=== PATIENT | female | born 1965 | race Caucasian/White ===

== ENCOUNTER 2020-11-17 12:41 | Emergency (ER) | payer BC ==
[~2020-11-17] VITALS: Ht 175.3 cm; Wt 63.5 kg
[2020-11-17] MEDS ORDERED: IV NORMAL SALINE 1000 ML BAG IV ONE (13:15)
[2020-11-17 13:17] LABS: *BILIRUBIN,URIN NEGATIVE (NEGATIVE); *BLOOD, URINE NEGATIVE (NEGATIVE); *CLARITY,URINE CLEAR (CLEAR); *COLOR,URINE YELLOW (YELLOW); *KETONES,URINE NEGATIVE (NEGATIVE); *UROBILINOGEN,URINE 0.2 E.U./dl (NORMAL); LEUKOCYTE ESTERASE ,URINE NEGATIVE (NEGATIVE); NITRITE, URINE NEGATIVE (NEGATIVE); UGLUCOSE NEGATIVE (NEGATIVE)
[2020-11-17 13:20] LABS: BASOPHILS # (AUTO) 0.1 K/uL (0.0-8.0); EOSINOPHILS % (AUTO) 0.8 % (0.0-7.0); HEMATOCRIT 40.1 % (31.2-41.9); HEMOGLOBIN 13.7 g/dL (10.9-14.3); LYMPHOCYTES # (AUTO) 2.1 K/uL (20.0-40.0); LYMPHOCYTES % (AUTO) 37.4 % (20.5-51.5); MEAN CORPUSCULAR HEMOGLOBIN 32.7 uug (24.7-32.8); MEAN CORPUSCULAR HGB CONC 34 g/dL (32.3-35.6); MONOCYTES # (AUTO) 0.4 K/uL (2.0-10.0); MONOCYTES % (AUTO) 7.2 % (0.0-11.0); NEUTROPHILS % (AUTO) 53.6 % (38.5-71.5); PLATELET COUNT (AUTO) 195 K/uL (179-408); RED BLOOD CELL COUNT(AUTO) 4.18 MIL/uL (3.63-4.92); WHITE BLOOD COUNT (AUTO) 5.6 K/uL (3.8-11.8)
--- NOTE | 2020-11-17 13:21 | NUR ---
Pt c/o "tearing" pain in RLQ to lower midline, later also described as burning, varies in intensity from 2/10 to 10/10 on occasion. Rebound tenderness noted. Also c/o of being "queasy," but denies nausea. Although pt states she drank too much coffee several days ago (and had associated CP with palpitations that day), Pt currently denies CP, SOB, dizziness, n/v, no other complaints, no distress noted. 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
[2020-11-17 13:31] LABS: BILIRUBIN,DIRECT 0.1 mg/dL (0.0-0.2); BILIRUBIN,TOTAL 0.5 mg/dL (0.2-1.0); CREATININE 0.7 mg/dL (0.6-1.3); POTASSIUM 3.9 mmol/L (3.5-5.1)
--- NOTE | 2020-11-17 14:05 | NUR ---
U/S bedside, PET[facility] [employer].
--- NOTE | 2020-11-17 15:12 | NUR ---
Removed IV intact, site okay, bandaged. Gave pt d/c instructions, pt verbalized understanding.
== END 2020-11-17 15:15 | disposition home or self-care (01) ==
LOC: ER 12:41
DX: R10.2 Pelvic and perineal pain (principal); Z98.82 Breast implant status; Z87.19 Personal history of other diseases of the digestive system; N88.8 Other specified noninflammatory disorders of cervix uteri; Z82.49 Family history of ischemic heart disease and other diseases of the circulatory system
CPT/HCPCS: 36415; 76770; 76856; 85025; A4663; J7030

== ENCOUNTER 2022-09-22 18:12 | Emergency (ER) | payer BC ==
[~2022-09-22] VITALS: Ht 175.3 cm; Wt 61.2 kg
[2022-09-22] MEDS ORDERED: ASPIRIN 81 MG TAB.CHEW PO ONE (18:45)
[2022-09-22 18:49] LABS: HEMATOCRIT 39.8 % (31.2-41.9); MEAN CORPUSCULAR HEMOGLOBIN 32.2 uug (24.7-32.8); MEAN CORPUSCULAR VOLUME 96.7 fL (75.5-95.3); PLATELET COUNT (AUTO) 192 K/uL (179-408)
--- NOTE | 2022-09-22 18:51 | NUR ---
Pt stated that she took aspirin at 3pm today. notified.
--- NOTE | 2022-09-22 19:00 | NUR ---
Seen by YURIY for MSE.
[2022-09-22 19:08] LABS: CARBON DIOXIDE 29 mmol/L (21-32); CHLORIDE 102 mmol/L (98-107); CREATININE 0.7 mg/dL (0.6-1.3); GLUCOSE 99 mg/dL (74-106); POTASSIUM 3.5 mmol/L (3.5-5.1); UREA NITROGEN, BLOOD 16 mg/dL (7-18)
--- NOTE | 2022-09-22 19:14 | NUR ---
Endorsed to Perla GREEN.
[2022-09-22] MEDS ORDERED: LORAZEPAM 0.5 MG TABLET PO ONE (19:15)
[2022-09-22 19:25] LABS: ALANINE AMINOTRANSFERASE 25 U/L (14-59); ALKALINE PHOSPHATASE 56 U/L (50-136); ASPARTATE AMINOTRANSFERASE 16 U/L (15-37); BILIRUBIN,DIRECT 0.1 mg/dL (0.0-0.2); BILIRUBIN,TOTAL 0.4 mg/dL (0.2-1.0); TOTAL PROTEIN, SERUM 7.2 g/dL (6.4-8.2)
[2022-09-22] MEDS ORDERED: LORAZEPAM 0.5 MG TABLET ONE (19:33)
[2022-09-22] MEDS ORDERED: ASPIRIN 81 MG TAB.CHEW ONE (19:37)
[2022-09-22] MEDS ORDERED: IV NORMAL SALINE 1000 ML BAG IV ONE (19:45)
--- NOTE | 2022-09-22 19:45 | NUR ---
Gace all due meds as ordered. PT. AOX4, able to make needs known, VSS at this time
[2022-09-22] MEDS ORDERED: LORA-259 PO (20:23)
[2022-09-22 20:27] VITALS: BP 124/87
--- NOTE | 2022-09-22 20:27 | NUR ---
Patient discharged to home in stable condition. Written and verbal after care instructions given. Patient verbalizes understanding of instructions. Stressed follow up or return to ER for worsening s/s.
== END 2022-09-22 20:28 | disposition home or self-care (01) ==
LOC: ER 18:12
DX: R07.9 Chest pain, unspecified (principal); R00.2 Palpitations
CPT/HCPCS: 99285; 71045; 80076; 80048; 83880; 85025; 85379; 84484; 36415; 93005; J7040; A4663

== ENCOUNTER 2024-01-16 18:32 | Emergency (ER) | payer BC ==
[~2024-01-16] VITALS: Ht 177.8 cm; Wt 63.5 kg
[~2024-01-16 18:32] MED LIST: LORA-259 PO
[2024-01-16] MEDS ORDERED: ACETAMINOPHEN ES 500 MG TABLET ONE (19:14)
[2024-01-16] MEDS: ACETAMINOPHEN ES 500 MG TABLET PO ONE (19:16)
[2024-01-16] MEDS ORDERED: FLUC100T8 PO (21:32)
[2024-01-16] MEDS ORDERED: OXYC5TAB3 PO (21:32)
[2024-01-16] MEDS ORDERED: CEPH500C2 PO (21:32)
[2024-01-16] MEDS ORDERED: IBUPROFEN 600 MG TABLET ONE (21:46)
[2024-01-16] MEDS ORDERED: CEphaleXIN 500 MG CAPSULE ONE (21:46)
[2024-01-16] MEDS: CEphaleXIN 500 MG CAPSULE PO ONE (21:49)
[2024-01-16] MEDS: IBUPROFEN 600 MG TABLET PO ONE (21:49)
[2024-01-16 21:51] VITALS: BP 138/88; O2SAT 99
== END 2024-01-16 21:52 | disposition home or self-care (01) ==
LOC: ER 18:38
DX: S22.31XA Fracture of one rib, right side, initial encounter for closed fracture (principal); S02.85XA Fracture of orbit, unspecified, initial encounter for closed fracture; S60.511A Abrasion of right hand, initial encounter; M54.2 Cervicalgia; Z98.890 Other specified postprocedural states; Z79.899 Other long term (current) drug therapy; W18.39XA Other fall on same level, initial encounter; Y93.89 Activity, other specified; Y92.89 Other specified places as the place of occurrence of the external cause; Y99.8 Other external cause status
CPT/HCPCS: 70450; 70486; 71101; A4606; A4663; A9150

== ENCOUNTER 2024-01-19 08:02 | Emergency (ER) | payer BC ==
[~2024-01-19] VITALS: Ht 177.8 cm; Wt 63.5 kg
[~2024-01-19 08:02] MED LIST changes: +CEPH500C2 PO; +FLUC100T8 PO; +OXYC5TAB3 PO
[2024-01-19 09:21] VITALS: BP 133/71; TEMP 98.2; O2SAT 98
== END 2024-01-19 09:22 | disposition home or self-care (01) ==
LOC: ER 08:02
DX: S02.31XA Fracture of orbital floor, right side, initial encounter for closed fracture (principal); S22.31XA Fracture of one rib, right side, initial encounter for closed fracture; S16.1XXA Strain of muscle, fascia and tendon at neck level, initial encounter; F07.81 Postconcussional syndrome; Z98.890 Other specified postprocedural states; Z79.899 Other long term (current) drug therapy; W18.39XA Other fall on same level, initial encounter; Y93.89 Activity, other specified; Y92.89 Other specified places as the place of occurrence of the external cause; Y99.8 Other external cause status
CPT/HCPCS: A4606; A4663

== ENCOUNTER 2024-01-20 09:58 | Emergency (ER) | payer BC ==
[~2024-01-20] VITALS: Ht 177.8 cm; Wt 63.5 kg
[2024-01-20 10:42] VITALS: BP 139/90; TEMP 98.6; O2SAT 100
== END 2024-01-20 10:44 | disposition home or self-care (01) ==
LOC: ER 09:58
DX: R04.0 Epistaxis (principal); Z79.899 Other long term (current) drug therapy
CPT/HCPCS: A4606; A4663

== ENCOUNTER 2024-02-06 13:34 | Emergency (ER) | payer BC ==
[~2024-02-06] VITALS: Ht 175.3 cm; Wt 63.5 kg
[2024-02-06] MEDS ORDERED: ALPRAZOLAM 0.5 MG TABLET ONE (15:48)
[2024-02-06] MEDS: ALPRAZOLAM 0.25 MG TABLET PO ONE (15:50)
[2024-02-06 15:54] VITALS: BP 121/76; TEMP 97; O2SAT 98
== END 2024-02-06 15:55 | disposition home or self-care (01) ==
LOC: ER 13:36
DX: G96.00 Cerebrospinal fluid leak, unspecified (principal); R51.9 Headache, unspecified; Z98.890 Other specified postprocedural states; Z79.899 Other long term (current) drug therapy; Z79.891 Long term (current) use of opiate analgesic
CPT/HCPCS: 70450; 70486; 72125; A4606; A4663

== ENCOUNTER 2024-09-25 01:04 | Emergency (ER) | payer BC, OTHER ==
[~2024-09-25] VITALS: Ht 175.3 cm; Wt 63.5 kg
[2024-09-25] MEDS ORDERED: diphenhydrAMINE 25 MG CAP PO ONE (02:14)
[2024-09-25] MEDS ORDERED: ACETAMINOPHEN 500 MG TABLET ONE (02:14)
[2024-09-25] MEDS: ACETAMINOPHEN 500 MG TABLET PO ONE (02:20)
[2024-09-25] MEDS: diphenhydrAMINE 50 MG CAPSULE PO ONE (02:20)
[2024-09-25 03:06] LABS: BASOPHILS # (AUTO) 0.1 K/UL (0.0-0.2); BASOPHILS % (AUTO) 2.5 % (0.0-2.0); EOSINOPHILS % (AUTO) 0.9 % (0.0-7.0); HEMATOCRIT 39.3 % (31.2-41.9); HEMOGLOBIN 13.2 g/dL (10.9-14.3); LYMPHOCYTES # (AUTO) 1.9 K/uL (0.8-4.8); LYMPHOCYTES % (AUTO) 38.1 % (20.5-51.5); MEAN CORPUSCULAR HEMOGLOBIN 32.8 uug (24.7-32.8); MEAN CORPUSCULAR HGB CONC 34 g/dL (32.3-35.6); MEAN CORPUSCULAR VOLUME 97.6 fL (75.5-95.3); MONOCYTES # (AUTO) 0.5 K/uL (0.1-1.30); MONOCYTES % (AUTO) 10.1 % (0.0-11.0); NEUTROPHILS # (AUTO) 2.4 K/uL (1.8-8.9); NEUTROPHILS % (AUTO) 48.4 % (38.5-71.5); PLATELET COUNT (AUTO) 188 K/uL (179-408); RED BLOOD CELL COUNT(AUTO) 4.02 MIL/uL (3.63-4.92)
[2024-09-25 03:10] LABS: DIFFERENTIAL COMMENT 1
[2024-09-25 03:11] LABS: *BILIRUBIN,URIN NEGATIVE (NEGATIVE); *BLOOD, URINE 1+ (NEGATIVE); *CLARITY,URINE CLEAR (CLEAR); *COLOR,URINE YELLOW (YELLOW); *KETONES,URINE NEGATIVE (NEGATIVE); *PROTEIN,URINE NEGATIVE (NEGATIVE); *UROBILINOGEN,URINE 0.2 E.U./dl (NORMAL); LEUKOCYTE ESTERASE ,URINE TRACE (NEGATIVE); NITRITE, URINE NEGATIVE (NEGATIVE); PH,URINE 5.5 (5.0-8.0); UGLUCOSE NEGATIVE (NEGATIVE)
[2024-09-25 03:12] LABS: BACTERIA,URINE FEW /HPF (NONE SEEN); RBC,URINE 0-3 /HPF (0-3); SQUAMOUS EPITHELIAL CELL,UR NONE SEEN /HPF (NONE SEEN)
[2024-09-25 03:16] LABS: CALCIUM 9.5 mg/dL (8.5-10.1); CREATININE 0.7 mg/dL (0.6-1.3); POTASSIUM 3.7 mmol/L (3.5-5.1)
[2024-09-25 03:22] LABS: ALBUMIN 4.1 g/dL (3.4-5.0); BILIRUBIN,TOTAL 0.9 mg/dL (0.2-1.0)
[2024-09-25 06:01] VITALS: BP 131/91; O2SAT 100
== END 2024-09-25 06:01 | disposition home or self-care (01) ==
LOC: ER 01:17
DX: R10.31 Right lower quadrant pain (principal); T36.8X5A Adverse effect of other systemic antibiotics, initial encounter; R10.32 Left lower quadrant pain; R10.2 Pelvic and perineal pain; R11.0 Nausea; R21 Rash and other nonspecific skin eruption; R51.9 Headache, unspecified; R53.1 Weakness; G62.9 Polyneuropathy, unspecified; K76.89 Other specified diseases of liver; N95.1 Menopausal and female climacteric states; Z79.890 Hormone replacement therapy; Z88.1 Allergy status to other antibiotic agents; Y92.89 Other specified places as the place of occurrence of the external cause
CPT/HCPCS: 99284; 74176; 76856; 80053; 81001; 83690; 85025; 84484; 36415; Q0163; A4606; A4663; A9150